=== PATIENT | male | born 1990 | race Hispanic/Latino ===

== ENCOUNTER 2020-11-15 06:45 | Day surgery (SDC) | payer OTHER ==
[~2020-11-15] VITALS: Ht 152.4 cm; Wt 110.1 kg
--- NOTE | 2020-11-15 10:51 | NUR ---
11/15/20 1051 Gabriela Woodward 1044- PT ARRIVES TO PACU. OPENS EYES TO VERBAL STIMULI. PT DOES NOT FOLLOW COMMANDS AT THIS TIME AND FALLS INSTANTLY BACK TO SLEEP. RESP RAPID. OXYGEN SAT HIGH 90'S TO 100% ON 10L VIA MASK. HR IS 120'S- 130'S IN SINUS TACHYCARDIA. BRETT BECKHAM CRNA AWARE. 1049- OXYGEN TITRATED DOWN TO 6L VIA MASK.
--- NOTE | 2020-11-15 11:34 | NUR ---
PT ARRIVED TO DS ROOM WITH SISTER AND MOTHER AT BEDSIDE, PT DENIES PAIN AND NODES "YES" TO NUMBNESS IN HIS MOUTH. SMALL AMOUNT OF DRAINAGE NOTED WHEN SIPPING WATER. VSS. CALL LIGHT WITHIN REACH AND BED IN LOW. PT SITTING UP WATCHING TV AND PLAN OF CARE DISCUSSED.
[2020-11-15] MEDS ORDERED: HYDROCODON-ACE1 EA10 PO (12:08)
[2020-11-15] MEDS ORDERED: IBU600 MG PO (12:09)
--- NOTE | 2020-11-15 12:20 | NUR ---
PT UP TO BATHROOM WITH SISTER AND RN AT [facility] SIDE. PT STEADY ON HIS FEET AND DENIES DIZZINESS. PT VOID QUANTITY SUFFICIENT AND BACK TO BED. PT EATIN APPLE SAUCE AND SIPPING SODA PER REQUEST. PT DENIES PAIN AND NAUSEA.
--- NOTE | 2020-11-15 12:55 | NUR ---
DC INSTRUCTIONS GIVEN AND PAPERWORK WITH RX GIVEN. ALL QUESTIONS ANSWERED. PT DC VIA WC AND DRESSED WITH FAMILY. VSS.
== END 2020-11-15 12:55 | disposition home or self-care (01) ==
LOC: DS 06:45 → OPS 06:45 → DS 08:45 → OPS 12:55
PROVIDERS: ATTEND Dentist General Practice
PROC: 0CDWXZ1 Extraction of Upper Tooth, Multiple, External Approach (ICD-10-PCS; 2020-11-15)
PROC: 0CDXXZ1 Extraction of Lower Tooth, Multiple, External Approach (ICD-10-PCS; principal; 2020-11-15 08:45)
DX: K02.9 Dental caries, unspecified (principal); K05.6 Periodontal disease, unspecified; K03.81 Cracked tooth; G47.33 Obstructive sleep apnea (adult) (pediatric); E66.01 Morbid (severe) obesity due to excess calories; Q90.9 Down syndrome, unspecified; E78.1 Pure hyperglyceridemia; Z68.42 Body mass index [BMI] 45.0-49.9, adult
CPT/HCPCS: 00170; 80048; 85025; J1100; J2704; J3010; J7121

== ENCOUNTER 2022-07-24 05:35 | Day surgery (SDC) | payer OTHER ==
[~2022-07-24] VITALS: Ht 152.4 cm; Wt 109.0 kg
[~2022-07-24 05:35] MED LIST: HYDROCODON-ACE1 EA10 PO; IBU600 MG PO
--- NOTE | 2022-07-24 08:05 | NUR ---
07/24/22 0805 Gabriela Woodward 0757- PT ARRIVES TO PACU NONAROUSABLE TO STIMULI WITH AN OPA IN PLACE. RESP EVEN, TACHYPNEIC, AND SHALLOW. OXYGEN SAT HIGH 90'S TO 100% ON 15L VIA MASK. 0759- OXYGEN TITRATED DOWN TO 10L VIA MASK. PT OCCASIONALLY NEEDING A JAW LIFT. CAN REPOSITION HEAD TO MAINTAIN PATENT AIRWAY.
--- NOTE | 2022-07-24 08:40 | NUR ---
LE 0875 PATIENT BACK FROM PACU. REPORT RECIEVED FROM TIP GUERRERO. PATIENT BREATHING EQUAL AND UNLABORED. OXYGEN SATURATIONS ABOVE 90% ON ROOM AIR. PATIENT DRINKING WATER AND EATING PUDDING WITH ASSISTANCE WITH FAMILY. PATIENT HAS SMALL AMOUNT OF RED DRAINAGE. IVF INFUSING. SCD'S ON. NO QUESTIONS AT THIS TIME. CALL LIGHT WITHIN REACH NO FUTHER NEEDS. PATIENT DENIES ANY PAIN OR BEING NAUSEATED.
--- NOTE | 2022-07-24 09:40 | NUR ---
LE 0940 PATIENT VOIDED CLEAR AND YELLOW URINE. PATIENT AMBULATED WELL. PATIENT READY FOR DISCHARGED. PATIENT FAMILY GIVEN DISCHARGE INSTRUCTIONS AND UNDERSTOOD. NO QUESTIONS AT THIS TIME. PATIENT ABLE TO DRESS SELF AND TOLERATED IT WELL. IV D/C'D WNL. PATIENT DENIES PAIN OR BEING NAUSEATED AT THIS TIME. PATIENT WHEELED OUT OF FACILITY TO PRIVATE AUTO NO FUTHER NEEDS.
== END 2022-07-24 09:40 | disposition home or self-care (01) ==
LOC: OPS 05:35 → DS 05:35 → OPS 07:00 → DS 07:30 → OPS 08:55
PROVIDERS: ATTEND Dentist General Practice
DX: K08.109 Complete loss of teeth, unspecified cause, unspecified class (principal)
CPT/HCPCS: 70310; J0330; J1100; J1160; J1885; J2250; J2370; J2405; J2704; J2765; J3010; J7121